=== PATIENT | female | born 1975 | race Caucasian/White ===

== ENCOUNTER 2021-01-01 03:35 | Emergency (ER) | payer OTHER, MEDICAID, SELFPAY ==
[2021-01-01 03:37] VITALS: BP 123/75; PULSE 64; RESP 16; TEMP 36.9; O2SAT 97; BMI 21.9
[2021-01-01 04:02] LABS: Microscopic, Urine URINE MICROSCOPIC (MICROSCOPIC)
[2021-01-01 04:04] LABS: Coronavirus 19, PCR Not Detected (NotDetected); Influenza A, PCR Not Detected (NotDetected); Influenza B, PCR Not Detected (NotDetected)
[2021-01-01 04:08] LABS: Basophils # 0.1 K/mm3 (0-0.2); Basophils % 1.2 % (0.1-2.0); Eosinophils # 0.2 K/mm3 (0.0-0.4); Eosinophils % 2.4 % (0.1-12.0); Hemoglobin 13.4 g/dL (12.2-16.2); Lymphocytes # 4.3 K/mm3 (0.7-4.5); Lymphocytes % 51.7 % (10-50); Mean Corpuscular HGB Conc 31.9 g/dL (31.8-35.4); Mean Platelet Volume 8.2 fl (7.4-10.4); Monocytes # 0.4 K/mm3 (0.1-1.0); Monocytes % 5.2 % (1.7-9.3); Neutrophils # 3.3 K/mm3 (1.8-7.8); Neutrophils % 39.4 % (37.0-80.0); Platelet Count 294 K/mm3 (142-424); Red Blood Count 4.47 M/mm3 (4.20-5.40); Red Cell Distribution Width 12.4 % (11.5-17.5); White Blood Count 8.4 K/mm3 (4.8-10.8)
[2021-01-01 04:10] LABS: MANUAL DIFFERENTIAL MANUAL DIFFERENTIAL (MANUAL DIFF)
[2021-01-01 04:12] LABS: Appearance,Urine CLEAR (Clear); Bilirubin,Urine Negative (Negative); Blood, Urine 2+ (Negative); Color,Urine YELLOW (Yellow); Glucose,Urine (UA) Negative (Negative); Ketones,Urine Negative (Negative); Leukocyte Esterase,Urine Negative (Negative); Nitrate,Urine Negative (Negative); Protein,Urine Negative (Negative); Specific Gravity, Urine 1.025 (1.005-1.030)
[2021-01-01 04:14] LABS: Alanine Aminotransferase 10 U/L (12-78); Albumin Level 4.2 g/dl (3.5-5.0); Albumin/Globulin Ratio 1.3 (1.1-1.8); Alkaline Phosphatase 65 U/L (38-126); Anion Gap 9.3 mEq/L (5-15); Aspartate Amino Transferase 21 U/L (14-36); Bilirubin,Total 0.8 mg/dl (0.2-1.3); Blood Urea Nitrogen 14 mg/dl (7-17); Calcium 8.7 mg/dl (8.4-10.2); Carbon Dioxide 28 mmol/L (22.0-30.0); Chloride 104 mmol/L (98-107); Creatinine Clearance Estimated 121 mL/min (50-200); Estimated Glomerular Filt Rate 109 ml/min (>60); GFR (African American) 132 ML/MIN (>60); Globulin 3.2 g/dL (1.3-3.2); Glucose 129 mg/dl (74-100); Potassium 3.3 mmoL/L (3.5-5.1); Sodium 138 mmol/L (136-145); Total Protein,Serum 7.4 g/dl (6.3-8.2)
[2021-01-01 04:19] LABS: Amorphous Sediment,Urine 1+ /lpf; Mucus,Urine 4+ /lpf; WBC,Urine Occasional #/hpf (0-3)
[2021-01-01 04:21] LABS: C-Reactive Protein < 0.3 mg/L (0-4); Eosinophils % 1 % (0-3); Hypochromasia 1+; Lymphocytes % 64 % (10-50); Macrocytosis 1+; Monocytes % 2 % (2-9); Neutrophils % 32 % (42-76); Platelet Estimate Normal; Total Cells Counted 100
[2021-01-01 04:36] LABS: Procalcitonin < 0.030 ng/mL (0.0-2.0)
[2021-01-01 04:37] LABS: Erythrocyte Sedimentation Rate 13 mm/hr (0-20)
--- NOTE | 2021-01-01 05:02 | HMH.EDHA ---
ED Disposition Clinical Impression: Headache Qualifiers: Headache type: unspecified Headache chronicity pattern: acute headache Intractability: not intractable Qualified Code(s): R51.9 - Headache, unspecified Disposition: Home, Self-Care Condition on Discharge: Good Instructions: DI for Headache Additional Instructions: see pcp for follow up Referrals: Provider,Referral, [Primary Care Provider] - - Critical Care Critical Care Time: No Attestation: On 01/01/21, the high probability of a clinically significant, sudden or life threatening deterioration of the following system(s) required my full and direct attention, intervention and personal management. The time I documented below is in addition to time spent performing reported procedures but includes the following listed in this critical care notation. Medical Decision Making - Medical Records Medical records reviewed: Yes: I reviewed the patient's medical records. - Paul Inquiry Pt receiving controlled substance: No Vital Signs: 01/01/21 03:37 Temperature 98.4 F Temperature Source Oral Pulse Rate [Right] 64 Respiratory Rate 16 Blood Pressure [Right Arm] 123/75 Blood Pressure Mean [Right Arm] 91 02 Sat by Pulse Oximetry 97 - Lab Data Lab results reviewed: Yes: I reviewed the patient's lab results. Lab Results 01/01/21 03:55: Urine Color Yellow, Urine Appearance Clear, Urine pH 6.0, Ur Specific [place] 1.025, Urine Protein Negative, Urine Glucose (UA) Negative, Urine Ketones Negative, Urine Blood 2+, Urine Nitrate Negative, Urine Bilirubin Negative, Urine Urobilinogen 1.0, Ur Leukocyte Esterase Negative, Urine RBC 10-20, Urine WBC Occasional, Amorphous Sediment 1+, Urine Mucus 4+ 01/01/21 03:55: WBC 8.4, RBC 4.47, Hgb 13.4, Hct 42.0, MCV 94.0, MCH 30.0, MCHC 31.9, RDW 12.4, Plt Count 294, MPV 8.2, Neut % (Auto) 39.4, Lymph % (Auto) 51.7 H, [place] % (Auto) 5.2, Eos % (Auto) 2.4, Baso % (Auto) 1.2, Neut # (Auto) 3.3, Lymph # (Auto) 4.3, [place] # (Auto) 0.4, Eos # (Auto) 0.2, Baso # (Auto) 0.1, Total Counted 100, Neutrophils % (Manual) 32 L, Band Neutrophils % 1.0, Lymphocytes % (Manual) 64 H, Monocytes % (Manual) 2, Eosinophils % (Manual) 1, Platelet Estimate Normal, Hypochromasia 1+, Macrocytosis 1+, ESR 13 01/01/21 03:55: Sodium 138, Potassium 3.3 L, Chloride 104, Carbon Dioxide 28, Anion Gap 9.3, BUN 14, Creatinine 0.60, Estimated Creat Clear 121, Estimated GFR 109, Est GFR ( Amer) 132, Glucose 129 H, Calcium 8.7, Total Bilirubin 0.8, AST 21, ALT 10 L, Alkaline Phosphatase 65, C-Reactive Protein < 0.3, Total Protein 7.4, Albumin 4.2, Globulin 3.2, Albumin/Globulin Ratio 1.3, Procalcitonin < 0.030 01/01/21 04:00: SARS-CoV-2 (PCR) Not detected, Influenza A Untype (PCR) Not detected, Influenza Type B (PCR) Not detected Result diagrams: 01/01/21 03:55 01/01/21 03:55 Orders (Tests/Meds): ED MEDICATIONS Generic Name Dose Route Start Last Admin Trade Name Freq PRN Reason Stop Dose Admin Sodium Chloride 1,000 mls @ 999 mls/hr 01/01/21 04:00 01/01/21 03:58 Sod Chlor 0.9% 1000ml Bag IV 01/01/21 05:00 999 mls/hr .Q1H1M DEAN Administration Discontinued Medications Generic Name Dose Route Start Last Admin Trade Name Freq PRN Reason Stop Dose Admin Dexamethasone Sodium Phosphate 10 mg 01/01/21 03:58 01/01/21 03:58 Dexamethasone 4mg/Ml 5ml Mdv IV 01/01/21 03:59 10 mg ONCE ONE Administration Diphenhydramine HCl 50 mg 01/01/21 04:34 01/01/21 04:37 Diphenhydramine 50mg/Ml Vial IV 01/01/21 04:35 50 mg ONCE ONE Administration Ketorolac Tromethamine 30 mg 01/01/21 03:53 01/01/21 03:58 Ketorolac 30mg/Ml Vial IV 01/01/21 03:54 30 mg ONCE ONE Administration Ondansetron HCl 4 mg 01/01/21 03:53 01/01/21 03:58 Ondansetron 4mg/2ml Vial IV 01/01/21 03:54 4 mg ONCE ONE Administration Promethazine HCl 25 mg 01/01/21 04:34 01/01/21 04:37 Promethazine Hcl 25mg/Ml 1ml Vial IV 01/01/21 04:35 25 mg
[2021-01-01 05:16] VITALS: BP 119/76; PULSE 76; RESP 16; TEMP 36.9; O2SAT 97
== END 2021-01-01 05:18 | disposition home or self-care (01) ==
PROVIDERS: Emergency Provider Emergency Medicine
DX: R51.9 Headache, unspecified (principal); F17.210 Nicotine dependence, cigarettes, uncomplicated; Z20.822 Contact with and (suspected) exposure to COVID-19
CPT/HCPCS: 80053; 81001; 84145; 85007; 85025; 85651; 86140; 96365; 96375; 99283; J2405; U0003

== ENCOUNTER 2022-07-18 11:25 | Emergency (ER) | payer OTHER, MEDICAID, SELFPAY ==
[2022-07-18 12:05] VITALS: BP 131/88; PULSE 77; RESP 20; TEMP 37.1; O2SAT 97; BMI 21.2
--- NOTE | 2022-07-18 12:30 | EXP.UTC ---
Discharge Plan Disposition Patient Disposition: Home, Self-Care Condition: Good Prescriptions Prescriptions: New azithromycin [Zithromax] 250 mg tablet 250 mg PO UD DOSE PK Qty: 6 0RF Rx Instructions: Take two (2) tablets today, then one (1) tablet days #2 thru #5 benzonatate [benzonatate] 100 mg capsule 100 mg PO TIDP PRN (Reason: Cough) Qty: 30 0RF methylprednisolone 4 mg Tablets,Dose Pack 4 mg PO DIRECTED Qty: 21 0RF No Action Sublocade 300 mg/1.5 mL solution, extended rel syringe 300 mg SQ MONTHLY Referrals Follow up/Referrals: Provider,Referral, MD [Primary Care Provider] - See instructions Activity Restrictions/Add. Instructions Additional Instructions/Restrictions: Drink plenty of fluids. Take tylenol or ibuprofen for pain or fever. Take the medications as directed. Follow up with your regular doctor. GO TO THE ER FOR ANY WORSENING SYMPTOMS Clinical Impressions Clinical Impression: Sinusitis Stand Alone Forms Stand Alone Forms: Work/School Release Instructions Patient Instructions: DI for Sinusitis Discharge ED Provider: Carli Birch [facility] HPI General Stated complaint: Congestion, Headache, Fever Time Seen by Provider: 07/18/22 12:29 Related Data Home Medications Medication Instructions Recorded Confirmed buprenorphine 300 mg/1.5 mL 300 mg SQ MONTHLY . 07/18/22 07/18/22 solution,exten.rel.subcutaneous syringe (Sublocade) Previous Rx's Medication Instructions Recorded azithromycin 250 mg tablet 250 mg PO UD DOSE PK #6 tabs 07/18/22 (Zithromax) benzonatate 100 mg capsule 100 mg PO TIDP PRN Cough #30 caps 07/18/22 methylprednisolone 4 mg tablets in 4 mg PO DIRECTED #21 tabs 07/18/22 a dose pack Allergies Allergy/AdvReac Type Severity Reaction Status Date / Time No Known Allergies Allergy Verified 07/18/22 12:[address] [facility] Disclaimer: The information contained in this section may have been updated after the patient was seen, as this information can be updated by other users. Social History Smoking Status: Current every day smoker alcohol intake: never current occupational status: employed Travel in the last 8 weeks: None ROS Obtained: Yes All systems reviewed & no additional complaints except as documented Constitutional Constitutional: Reports poor appetite Eyes Eyes: Reports system reviewed and no additional complaints, except as documented ENT Ears, Nose, Mouth, and Throat: Reports as per HPI Cardiovascular Cardiovascular: Reports system reviewed and no additional complaints, except as documented and Denies chest pain Respiratory Respiratory: Denies shortness of breath, Denies chest congestion, Reports cough, Denies stridor and Denies wheezing Gastrointestinal Gastrointestingal: Reports system reviewed and no additional complaints, except as documented; Denies abdominal pain, diarrhea or vomiting Musculoskeletal Musculoskeletal: Reports system reviewed and no additional complaints, except as documented and Denies arthralgias Integumentary/Breasts Skin/Breast: Reports system reviewed and no additional complaints, except as documented and Denies rash Neurologic Neurologic: Denies paresthesias Allergic/Immunologic Allergic/Immunologic: Denies wheezing Physical Exam General General appearance: alert and in no apparent distress Head Head exam: atraumatic, normocephalic and normal inspection Eye Eye exam: Present normal appearance, PERRL and EOMI ENT ENT exam: Present mucous membranes moist and normal external ear exam Expanded ENT Exam TM/Canal exam: Bilateral TM: erythema and bulging Nose exam: Absent sinus tenderness Mouth exam: Present normal external inspection; Absent drooling Teeth exam: Present normal inspection Throat exam: Present tonsillar erythema, tonsillomegaly and tonsillar exudate Neck Neck exam: Present normal inspec
[2022-07-18 12:33] LABS: UTC Strep Screen (Rapid) Negative (Negative)
[2022-07-18 13:42] VITALS: BP 131/88; PULSE 77; RESP 20; TEMP 37.1; O2SAT 97
== END 2022-07-18 13:41 | disposition home or self-care (01) ==
PROVIDERS: Nurse Practitioner Family; Emergency Provider Physician Assistant
DX: J01.90 Acute sinusitis, unspecified (principal); R50.9 Fever, unspecified; Z20.822 Contact with and (suspected) exposure to COVID-19
CPT/HCPCS: 87880; 99212; 99214; C9803; G0463; U0003; U0005

== ENCOUNTER 2024-03-29 19:05 | Emergency (ER) | payer OTHER, SELFPAY ==
[2024-03-29 19:06] VITALS: BP 138/94; PULSE 75; RESP 18; TEMP 36.9; O2SAT 100; BMI 21.9
--- NOTE | 2024-03-29 19:10 | ED_ITS ---
Discharge Plan Disposition Chief Complaint: Nausea/Vomiting/Diarrhea Prescriptions Prescriptions: New ondansetron 4 mg tablet,disintegrating 4 mg PO Q8H PRN (Reason: nausea and vomiting) 5 Days Qty: 20 0RF No Action Sublocade 300 mg/1.5 mL solution, extended rel syringe 300 mg SQ MONTHLY azithromycin [Zithromax] 250 mg tablet 250 mg PO UD DOSE PK Qty: 6 0RF Rx Instructions: Take two (2) tablets today, then one (1) tablet days #2 thru #5 benzonatate [benzonatate] 100 mg capsule 100 mg PO TIDP PRN (Reason: Cough) Qty: 30 0RF methylprednisolone 4 mg Tablets,Dose Pack 4 mg PO DIRECTED Qty: 21 0RF Referrals Follow up/Referrals: Provider,Referral, MD [Primary Care Provider] - See instructions Clinical Impressions Clinical Impression: Nausea, Light-headedness Instructions Patient Instructions: DI for Diarrhea and Traveler's Diarrhea -- Adult, DI for Diarrhea and Traveler's Diarrhea -- Child, DI for Nausea -- Adult, DI for Nausea -- Child Print Language Print Language: Irish Discharge ED Provider: Lj Scott General Adult HPI General Chief complaint: Nausea/Vomiting/Diarrhea Stated complaint: nauseated, dizzy, SOA Time Seen by Provider: 03/29/24 19:10 Mode of Arrival: Ambulatory Source of Information: Patient Limitations: No Limitations History of Present Illness HPI narrative: Kelley Hutson is a 49y female with no significant past medical history who presents to the emergency department for complaints of nausea, lightheadedness, intermittent abdominal pain over the past 2 days. She is also describing feeling like she has to burp stuck in her chest over the same time period. She states that nothing like this is happened before. She denies any vomiting. She denies any current abdominal pain. She denies any dysuria or hematuria. She notes that she is currently on her period and that her periods are typically heavy, lasting between 7 and 8 days. She notes that she has been anemic before. She denies any fevers. Related Data Home Medications ?Medication ?Instructions ?Recorded ?Confirmed buprenorphine 300 mg/1.5 mL 300 mg SQ MONTHLY . 07/18/22 07/18/22 solution,exten.rel.subcutaneous syringe (Sublocade) Previous Rx's ?Medication ?Instructions ?Recorded azithromycin 250 mg tablet 250 mg PO UD DOSE PK #6 tabs 07/18/22 (Zithromax) benzonatate 100 mg capsule 100 mg PO TIDP PRN Cough #30 caps 07/18/22 methylprednisolone 4 mg tablets in 4 mg PO DIRECTED #21 tabs 07/18/22 a dose pack ondansetron 4 mg disintegrating 4 mg PO Q8H PRN nausea and 03/29/24 tablet vomiting 5 days #20 tabs Allergies Allergy/AdvReac Type Severity Reaction Status Date / Time No Known Allergies Allergy Verified 07/18/22 12:30 [facility] Disclaimer: The information contained in this section may have been updated after the patient was seen, as this information can be updated by other users. Social History Smoking Status: Never smoker alcohol intake: never current occupational status: employed Travel in the last 8 weeks: None Other Medical History Have you received the Flu Vaccine for this season: No Have you received the Pneumonia Vaccine: No ROS Obtained: Yes Systems reviewed as appropriate & no additional complaints except as documented Physical Exam General General appearance: alert, in no apparent distress and anxious Head Head exam: atraumatic Eye Eye exam: Present normal appearance ENT ENT exam: Present normal external ear exam Neck Neck exam: Present normal inspection Chest Chest inspection: Present normal inspection and symmetric chest wall rise; Absent tenderness Respiratory Respiratory exam: Present normal lung sounds bilaterally; Absent respiratory distress, wheezes or stridor Cardiovascular Cardiovascular exam: Present regular rate, normal rhythm and normal heart sounds Abdominal Exam Abdominal exam: Present soft; Absent distention, tenderness or guarding Extremities Exam Extremities exam: Present normal inspection; Absent edema Back Exam Back exam: Present normal inspection Neurological Exam Neurological exam: Present alert and oriented X3 Psychiatric Psychiatric exam: Present normal affect Skin Skin exam: Present warm and dry Medical Decision Making Medical Records Screening: Per USPSTF and CDC recommendations, given the prevalence of disease in our region, it is our hospital?s policy to screen for HIV and viral Hepatitis for all patients aged 18 and over and those with ongoing risk factors. Paul Inquiry Pt receiving controlled substance: No Vital Signs: 03/29/24 19:06 03/29/24 19:30 Temperature 98.4 F Temperature Source Oral Pulse Rate 74 Pulse Rate [Right Radial] 75 Respiratory Rate 18 Blood Pressure 122/73 Blood Pressure [Right Arm] 138/94 H Blood Pressure Mean [Right Arm] 108 Blood Pressure Source [Right Arm] Automatic Cuff Blood Pressure Position [Right Arm] Sitting 02 Sat by Pulse Oximetry 100 99 Oxygen Delivery Method Room Air Lab Data Lab Results 03/29/24 19:40: WBC 5.4, RBC 4.25, Hgb 13.0, Hct 38.9, MCV 91.5, MCH 30.5, MCHC 33.3, RDW 12.8, Plt Count 286, MPV 7.5, Neut % (Auto) 48.1, Lymph % (Auto) 41.3, [place] % (Auto) 7.8, Eos % (Auto) 1.5, Baso % (Auto) 1.2, Neut # (Auto) 2.6, Lymph # (Auto) 2.2, [place] # (Auto) 0.4, Eos # (Auto) 0.1, Baso # (Auto) 0.1, Sodium 138, Potassium 3.5, Chloride 104, Carbon Dioxide 26, Anion Gap 11.5, BUN 18 H, Creatinine 0.80, Estimated Creat Clear 87, Estimated GFR 77, Est GFR ( Amer) 93, Glucose 106 H, Calcium 9.4, Total Bilirubin 0.7, AST 24, ALT 13, Alkaline Phosphatase 42, Troponin I < 0.01, Total Protein 8.0, Albumin 4.9, Globulin 3.1, Albumin/Globulin Ratio 1.6, Lipase 77 03/29/24 19:42: Urine Color Yellow, Urine Appearance Clear, Urine pH 5.5, Ur Specific [place] >= 1.030, Urine Protein Negative, Urine Glucose (UA) Negative, Urine Ketones Negative, Urine Blood 2+ A, Urine Nitrate Negative, Urine Bilirubin Negative, Urine Urobilinogen 0.2, Ur Leukocyte Esterase Negative, Urine RBC 10-20, Urine WBC Occasional, Ur Squamous Epith Cells 5-10, Urine Bacteria 1+, Urine Mucus 4+ 03/29/24 19:40 03/29/24 19:40 Orders (Tests/Meds): ED MEDICATIONS Discontinued Medications Generic Name Dose Route Start Last Admin Trade Name Freq PRN Reason Stop Dose Admin Ondansetron HCl 4 mg 03/29/24 19:19 03/29/24 19:44 Ondansetron 4mg/2ml Vial IV 03/29/24 19:20 4 mg ONCE ONE Administration ORDERS Category Date Time Status CXR 2 view (NOT portable) [XR chest 2V] Stat Exams 03/29/24 19:19 Completed CBC w/Auto Diff [Complete Blood Count Auto Diff] Stat Lab 03/29/24 19:40 Completed CMP [Comprehensive Metabolic Panel] Stat Lab 03/29/24 19:40 Completed HIV (1&2) Antibody Rapid Stat Lab 03/29/24 19:40 Received Hep C Ab with Reflex to RNA Stat Lab 03/29/24 19:40 Received Lipase Stat Lab 03/29/24 19:40 Completed Troponin I Q3H Lab 03/29/24 22:30 Ordered Troponin I Q3H Lab 03/30/24 01:30 Ordered Troponin I Stat Lab 03/29/24 19:40 Completed Urinalysis and Microscopic Stat Lab 03/29/24 19:42 Completed ECG Data Tracing #1: I reviewed this ECG and interpreted as documented below: EKG interpreted by me personally. Normal sinus rhythm. No ST elevation or depression. QTc normal at 408. IN interval normal at 128. Medical Decision Narrative: Kelley Hutson is a 49F with no significant past medical history who presents to the emergency department for complaints of lightheadedness, nausea, feeling like she cannot take a complete breath over the past 2 days. Patient denies any chest pain but does report intermittent sharp abdominal pains. Patient notes that she is currently on her period and that her periods are heavy, lasting 7 to 8 days. She denies any urinary symptoms. On arrival, patient is hemodynamically stable, heart rate within normal limits, blood pressure 138/94, afebrile, breathing comfortably on room air with oxygen saturation at 100% SpO2. Physical exam, as stated above, revealed an overall well-appearing female in no acute distress. She does appear mildly anxious. No wheezing, rales or rhonchi. No murmurs were appreciated. Abdomen is soft, nontender nondistended. She ambulated into the emergency department. Differential diagnosis includes: Cardiac arrhythmia, ACS, pneumonia, hypoglycemia, electrolyte derangement, among others. Low concern for pulmonary embolism at this time as patient is not tachycardic and has no known risk factors. Chest x-ray was interpreted by me personally and demonstrated no focal consolidations, no pneumothorax, no pulmonary effusion. No widening of the mediastinum. Cardiac silhouette appears within normal limits. See radiology report for final details. Labs interpreted by me personally demonstrated no anemia with hemoglobin of 13 and hematocrit of 38.9. No leukocytosis. Electrolytes within normal limits. No AMISH. Liver enzymes within normal limits. Initial troponin less than 0.01, no indication for second troponin. Lipase normal at 77. Urine without evidence of infection. Patient does have 2+ blood in her urine, however this is likely secondary to her period. On reassessment, patient remained in stable condition. She reported improvement in her nausea. Patient notes that she has worked around chemicals for several years, however she recently started working around airborne chemicals instead of powders and believes this may be the source of her symptoms as her symptoms worsen when she is around these chemicals. Given her unremarkable workup here in the emergency department today, it is felt that she is appropriate discharge at this time with a prescription for Zofran and instructions to follow-up with her primary care physician. Return precautions were given. All questions were answered. She demonstrated understanding and was agreed with this plan. She was then discharged from the emergency department in stable condition. Critical Care Critical Care Time Critical Care Time: No
--- NOTE | 2024-03-29 19:19 | XR_ITS ---
PROCEDURE INFORMATION: Exam: XR Chest Exam date and time: 03/29/2024 7:15 PM Age: 49 years old Clinical indication: Shortness of breath; Additional info: SOB TECHNIQUE: Imaging protocol: Radiologic exam of the chest. Views: 2 views. COMPARISON: No relevant prior studies available. FINDINGS: Lungs: Right lower lobe calcified granuloma. No consolidation or edema. Calcified right hilar lymph nodes. Pleural spaces: Normal. No pleural effusion. No pneumothorax. Heart/Mediastinum: Normal. No cardiomegaly. Bones/joints: Unremarkable. IMPRESSION: No acute findings.
--- NOTE | 2024-03-29 19:21 | ECG_ITS ---
APPROVED REPORT Exam: Resting ECG HR:67 bpm ECG Measurements Heart Rate 67 AXES MO 128 P 74 QRSd 97 QRS 77 QT 392 T 65 QTc 408 Conclusion SINUS RHYTHM INCOMPLETE RIGHT BUNDLE BRANCH BLOCK [90+ ms QRS DURATION, TERMINAL R IN V1/V2, 40+ ms S IN I/aVL/V4/V5/V6] MODERATE ST DEPRESSION [0.05+ mV ST DEPRESSION] ABNORMAL ECG Electronically signed by : WENDI PATEL, 03/31/2024 07:36:55
[2024-03-29 19:30] VITALS: BP 122/73; PULSE 74; O2SAT 99
[2024-03-29] MEDS: ONDANSETRON 4MG/2ML VIAL 4 MG IV (19:44)
[2024-03-29 19:46] LABS: Microscopic, Urine URINE MICROSCOPIC (MICROSCOPIC)
[2024-03-29 19:48] LABS: Appearance,Urine CLEAR (Clear); Bilirubin,Urine Negative (Negative); Blood, Urine 2+ (Negative); Color,Urine YELLOW (Yellow); Glucose,Urine (UA) Negative (Negative); Ketones,Urine Negative (Negative); Leukocyte Esterase,Urine Negative (Negative); Nitrate,Urine Negative (Negative); PH,Urine 5.5 (5.0-8.5); Protein,Urine Negative (Negative); Specific Gravity, Urine >= 1.030 (1.005-1.030); Urobilinogen,Urine 0.2 EU/dl (0.2)
[2024-03-29 19:52] LABS: Chloride 104 mmol/L (98-107)
[2024-03-29 19:53] LABS: Albumin Level 4.9 g/dl (3.5-5.0); Basophils # 0.1 K/mm3 (0-0.2); Basophils % 1.2 % (0.1-2.0); Eosinophils # 0.1 K/mm3 (0.0-0.4); Eosinophils % 1.5 % (0.1-12.0); Hematocrit 38.9 % (37.0-47.0); Lymphocytes # 2.2 K/mm3 (0.7-4.5); Lymphocytes % 41.3 % (10-50); Mean Corpuscular HGB Conc 33.3 g/dL (31.8-35.4); Mean Corpuscular Hemoglobin 30.5 pg (27.0-31.2); Mean Corpuscular Volume 91.5 fl (81-99); Mean Platelet Volume 7.5 fl (7.4-10.4); Monocytes # 0.4 K/mm3 (0.1-1.0); Monocytes % 7.8 % (1.7-9.3); Neutrophils # 2.6 K/mm3 (1.8-7.8); Neutrophils % 48.1 % (37.0-80.0); Platelet Count 286 K/mm3 (142-424); Potassium 3.5 mmoL/L (3.5-5.1); Red Blood Count 4.25 M/mm3 (4.20-5.40); Red Cell Distribution Width 12.8 % (11.5-17.5); Sodium 138 mmol/L (136-145); White Blood Count 5.4 K/mm3 (4.8-10.8)
[2024-03-29 19:55] LABS: Alanine Aminotransferase 13 U/L (12-78); Aspartate Amino Transferase 24 U/L (14-36); Blood Urea Nitrogen 18 mg/dl (7-17); Creatinine Clearance Estimated 87 mL/min (50-200); Estimated Glomerular Filt Rate 77 ml/min (>60); GFR (African American) 93 ML/MIN (>60)
[2024-03-29 19:56] LABS: Albumin/Globulin Ratio 1.6 (1.1-1.8); Alkaline Phosphatase 42 U/L (38-126); Anion Gap 11.5 mEq/L (5-15); Bilirubin,Total 0.7 mg/dl (0.2-1.3); Calcium 9.4 mg/dl (8.4-10.2); Carbon Dioxide 26 mmol/L (22.0-30.0); Globulin 3.1 g/dL (1.3-3.2); Glucose 106 mg/dl (74-100); Lipase 77 U/L (23-300)
[2024-03-29 20:10] LABS: WBC,Urine Occasional #/hpf (0-3)
[2024-03-29 20:11] LABS: Bacteria,Urine 1+ /lpf; Mucus,Urine 4+ /lpf
[2024-03-29 20:22] LABS: Troponin I < 0.01 ng/ml (0.00-0.034)
[2024-03-29 20:46] VITALS: BP 122/70; PULSE 70; RESP 18; TEMP 36.6; O2SAT 98
[2024-03-29 20:47] LABS: HIV (1&2) Antibody Rapid NONREACTIVE (NONREACTIVE)
[2024-04-02 11:48] LABS: HCV Ab Reactive (Non Reactive)
== END 2024-03-29 20:54 | disposition home or self-care (01) ==
PROVIDERS: Emergency Provider Student in an Organized Health Care Education/Training Program
DX: R11.0 Nausea (principal); R42 Dizziness and giddiness; R10.9 Unspecified abdominal pain
CPT/HCPCS: 71046; 80053; 81001; 83690; 84484; 85025; 86803; 87389; 93005; 96374; 99284; J2405